=== PATIENT | male | born 1965 | race American Indian/Alaskan Native ===

== ENCOUNTER 2018-03-24 12:35 | Inpatient (IN) | payer OTHER ==
[2018-03-24] MEDS ORDERED: CATAPRES ONE (13:04)
[2018-03-24] MEDS ORDERED: CATAPRES PO ONE (13:07)
[2018-03-24] MEDS ORDERED: ANTIVERT PO ONE (13:18)
--- NOTE | 2018-03-24 13:22 | Emergency Department Report ---
HPI - General Chief Complaint: Dizziness Time Seen by Provider: 03/24/18 13:10 - HPI HPI: Room 1 The patient is a 52-year-old male presenting with chief complaint of dizziness. The patient states he works overnight got off work this morning 09:00. The patient states he was asleep when he was awakened with sensation of dizziness. Patient is to nausea and vomiting. Patient denies headache or fever. Patient denies any preceding trauma. The patient is hypertensive and states he's been off of this blood pressure medication for "a while." Location: Head Duration: [See above] Quality: Vertigo Severity: Moderate Modifying factors: [see above] Context: [see above] Mode of transportation: [not driving] ED Past Medical Hx - Past Medical History Previous Medical History?: Yes Hx Hypertension: Yes - Surgical History Past Surgical History?: No - Family History Family history: no significant - Social History Smoking Status: Current Every Day Smoker (1/3 pack per day) Substance Use Type: None, Alcohol (sixpack of beer daily) ED Review of Systems ROS: Stated complaint: DIZZINESS/HTN Other details as noted in HPI Constitutional: denies: fever Eyes: vision change ENT: denies: throat pain Respiratory: no symptoms reported Cardiovascular: denies: chest pain Endocrine: no symptoms reported Gastrointestinal: denies: abdominal pain Genitourinary: denies: dysuria Musculoskeletal: denies: back pain Neurological: vertigo. denies: headache Physical Exam - Physical Exam Vital Signs: Vital Signs 03/24/18 03/24/18 03/24/18 12:49 13:08 13:13 Temperature 97.1 F L Pulse Rate 79 79 Respiratory 16 16 Rate Blood Pressure 221/135 220/127 O2 Sat by Pulse 96 98 Oximetry Physical Exam: GENERAL: The patient is well-developed well-nourished male lying on stretcher not appearing to be in acute distress. Patient is holding an emesis bag HEENT: Normocephalic. Atraumatic. Extraocular motions are intact. Patient has moist mucous membranes. No nystagmus NECK: Supple. No meningitic signs are noted. Trachea midline CHEST/LUNGS: Clear to auscultation. There is no respiratory distress noted. HEART/CARDIOVASCULAR: Regular. There is no tachycardia. There is no gallop rub or murmur. ABDOMEN: Abdomen is soft, nontender. Patient has normal bowel sounds. There is no abdominal distention. SKIN: There is no rash. There is no edema. There is no diaphoresis. NEURO: The patient is awake, alert, and oriented. The patient is cooperative. The patient has no focal neurologic deficits. The patient has normal speech. Cranial nerves II through XII grossly intact, no drift. No dysmetria noted with ptibmi-so-dogr bilaterally MUSCULOSKELETAL: There is no evidence of acute injury. ED Course Vital Signs 03/24/18 03/24/18 03/24/18 12:49 13:08 13:13 Temperature 97.1 F L Pulse Rate 79 79 Respiratory 16 16 Rate Blood Pressure 221/135 220/127 O2 Sat by Pulse 96 98 Oximetry ED Medical Decision Making - Lab Data Result diagrams: 03/24/18 16:17 03/24/18 16:17 - EKG Data -: EKG Interpreted by Nh EKG shows normal: sinus rhythm Rate: normal - EKG Data When compared to previous EKG there are: previous EKG unavailable Interpretation: nonspecific ST-T wave stacia (T-wave inversions in leads 2, 3, aVF, V4, V5, V6), LVH - Radiology Data Radiology results: report reviewed (CT head), image reviewed (CT head) Findings [facility] [address] [place] [address] Cat Scan Report Signed Patient: GERMÁN FRANCIS MR#: [id number] : 1965 Acct:[id number] Age/Sex: 52 / M ADM Date: 03/24/18 Loc: ED Attending Dr: Ordering Physician: ALLA ALONSO MD Date of Service: 03/24/18 Procedure(s): CT head/brain wo con Accession Number(s): [id number] cc: ALLA ALONSO MD FINAL REPORT PROCEDURE: CT HEAD/BRAIN WO CON TECHNIQUE: Computerized tomography of the head was performed without contrast material. HISTORY: dizziness, hypertension COMPARISON: No prior studies are available for comparison. FINDINGS: No CT evidence of intracranial mass, hemorrhage, acute territorial infarction, or hydrocephalus. 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 The intracranial arteries are symmetric in density. Calvarium is intact. There is mild right maxillary sinus mucosal thickening. There may be periodontal disease, not fully evaluated. IMPRESSION: No CT evidence of acute intracranial abnormality Transcribed By: [facility] Dictated By: ALEXANDRIA BANKS M.D. Electronically Authenticated By: ALEXANDRIA BANKS M.D. Signed Date/Time: 03/24/181534 DD/ 33 TD/TT: 03/24/181533 - Differential Diagnosis hypertensive emergency, vertigo Critical care attestation.: If time is entered above; I have spent that time in minutes in the direct care of this critically ill patient, excluding procedure time. ED Disposition Clinical Impression: Hypertensive urgency, Dizziness Disposition: - OP ADMIT IP TO THIS HOSP Is pt being admited?: Yes Does the pt Need Aspirin: Yes Condition: Fair Referrals: ADRIENNE SIBLEY [Primary Care Provider] - 3-5 Days Time of Disposition: 18:06 (hospitalist notified (Dr Bacon))
[2018-03-24] MEDS ORDERED: APRESOLINE IV ONE ×2 (15:29→16:48)
--- NOTE | 2018-03-24 15:35 | Cat Scan Report ---
FINAL REPORT PROCEDURE: CT HEAD/BRAIN WO CON TECHNIQUE: Computerized tomography of the head was performed without contrast material. HISTORY: dizziness, hypertension COMPARISON: No prior studies are available for comparison. FINDINGS: No CT evidence of intracranial mass, hemorrhage, acute territorial infarction, or hydrocephalus. 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 The intracranial arteries are s ymmetric in density. Calvarium is intact. There is mild right maxillary sinus mucosal thickening. The re may be periodontal disease, not fully evaluated. IMPRESSION: No CT evidence of acute intracranial abnormality
[2018-03-24 16:41] LABS: Basophils % (Auto) 0.4 % (0.0-1.8); Eosinophils % (Auto) 0.8 % (0.0-4.3); Lymphocytes # (Auto) 0.8 K/mm3 (1.2-5.4); Lymphocytes % (Auto) 14.3 % (13.4-35.0); Mean Corpuscular HGB Conc 34 % (32-34); Mean Corpuscular Volume 98 fl (84-94); Monocytes # (Auto) 0.4 K/mm3 (0.0-0.8); Monocytes % (Auto) 7.3 % (0.0-7.3); Platelet Count 230 K/mm3 (140-440); Red Blood Count 4.51 M/mm3 (3.65-5.03); Red Cell Distribution Width 14.4 % (13.2-15.2)
[2018-03-24 17:19] LABS: BUN/Creatinine Ratio 17; Blood Urea Nitrogen 12 mg/dL (9-20); Hemolysis Index 2
[2018-03-24] MEDS ORDERED: CARDENE 50 MG in NACL 0.9% 250ML 230 ML IV SCH (18:00)
[2018-03-24] MEDS ORDERED: ASPIRIN PO ONE (18:07)
[2018-03-24] MEDS ORDERED: ZOFRAN IV ONE (19:50)
[2018-03-24] MEDS ORDERED: PERCOCET 5/325 PO PRN (21:25)
[2018-03-24] MEDS ORDERED: SODIUM CHLORIDE FLUSH SYRINGE 10 ML IV PRN (21:25)
[2018-03-24] MEDS ORDERED: DILAUDID IV PRN (21:25)
[2018-03-24] MEDS ORDERED: TYLENOL PO PRN (21:25)
[2018-03-24] MEDS ORDERED: ZOFRAN IV PRN (21:25)
--- NOTE | 2018-03-24 21:29 | History and Physical Report ---
History of Present Illness Date of examination: 03/24/18 Medications and Allergies Allergies Allergy/AdvReac Type Severity Reaction Status Date / Time No Known Allergies Allergy Unverified 03/24/18 12:59 Home Medications Medication Instructions Recorded Confirmed Last Taken Type No Known Home Medications [No 03/24/18 03/24/18 Unknown History Reported Home Medications] Active Meds: Active Medications Nicardipine HCl 50 mg/ Sodium (Chloride) 250 mls @ 25 mls/hr IV TITR NAOMI; Protocol Last Titration: 03/24/18 21:12 Dose: 5 mg/hr, 25 mls/hr Documented by: Exam - Constitutional Vitals: Temp Pulse Resp BP Pulse Ox 97.1 F L 79 17 134/73 93 03/24/18 12:49 03/24/18 21:00 03/24/18 21:00 03/24/18 21:00 03/24/18 21:00 Results - Labs CBC & Chem 7: 03/24/18 16:17 03/24/18 16:17 Labs: Laboratory Last Values WBC 5.6 K/mm3 (4.5-11.0) 03/24/18 16:17 RBC 4.51 M/mm3 (3.65-5.03) 03/24/18 16:17 Hgb 15.0 gm/dl (11.8-15.2) 03/24/18 16:17 Hct 44.0 % (35.5-45.6) 03/24/18 16:17 MCV 98 fl (84-94) H 03/24/18 16:17 MCH 33 pg (28-32) H 03/24/18 16:17 MCHC 34 % (32-34) 03/24/18 16:17 RDW 14.4 % (13.2-15.2) 03/24/18 16:17 Plt Count 230 K/mm3 (140-440) 03/24/18 16:17 Lymph % (Auto) 14.3 % (13.4-35.0) 03/24/18 16:17 [place] % (Auto) 7.3 % (0.0-7.3) 03/24/18 16:17 Eos % (Auto) 0.8 % (0.0-4.3) 03/24/18 16:17 Baso % (Auto) 0.4 % (0.0-1.8) 03/24/18 16:17 Lymph # 0.8 K/mm3 (1.2-5.4) L 03/24/18 16:17 [place] # 0.4 K/mm3 (0.0-0.8) 03/24/18 16:17 Eos # 0.0 K/mm3 (0.0-0.4) 03/24/18 16:17 Baso # 0.0 K/mm3 (0.0-0.1) 03/24/18 16:17 Seg Neutrophils % 77.2 % (40.0-70.0) H 03/24/18 16:17 Seg Neutrophils # 4.3 K/mm3 (1.8-7.7) 03/24/18 16:17 Sodium 139 mmol/L (137-145) 03/24/18 16:17 Potassium 4.0 mmol/L (3.6-5.0) 03/24/18 16:17 Chloride 100.9 mmol/L (98-107) 03/24/18 16:17 Carbon Dioxide 26 mmol/L (22-30) 03/24/18 16:17 Anion Gap 16 mmol/L 03/24/18 16:17 BUN 12 mg/dL (9-20) 03/24/18 16:17 Creatinine 0.7 mg/dL (0.8-1.5) L 03/24/18 16:17 Estimated GFR > 60 ml/min 03/24/18 16:17 BUN/Creatinine Ratio 17 % 03/24/18 16:17 Glucose 105 mg/dL (75-100) H 03/24/18 16:17 Calcium 9.0 mg/dL (8.4-10.2) 03/24/18 16:17
[2018-03-24] MEDS ORDERED: PEPCID ONE (22:44)
[2018-03-24] MEDS ORDERED: COREG ONE (22:44)
[2018-03-24] MEDS ORDERED: COZAAR ONE (22:44)
[2018-03-24] MEDS: COZAAR PO SCH (22:45)
[2018-03-24] MEDS: COREG PO SCH (22:45)
[2018-03-24] MEDS: PEPCID PO SCH (22:46)
[2018-03-24] MEDS: SODIUM CHLORIDE FLUSH SYRINGE 10 ML IV SCH (22:46)
--- NOTE | 2018-03-25 03:03 | History and Physical Report ---
CHIEF COMPLAINT: Dizziness. HISTORY OF PRESENT ILLNESS: A 52-year-old male noncompliant with hypertensive medicine, comes in for dizziness since morning at 9:00. He denies headache or any transient weakness. Not taking his medications. PAST MEDICAL HISTORY: Significant for hypertension. PAST SURGICAL HISTORY: None. FAMILY HISTORY: Hypertension. SOCIAL HISTORY: Smokes over half a pack a day. REVIEW OF SYSTEMS: Significant for dizziness. Also, feeling heavy in the body. Otherwise, negative. A 14-point review of systems is done. PHYSICAL EXAMINATION: GENERAL: Middle-aged man, cooperative during examination. VITAL SIGNS: Initial blood pressure was 189/99, respirations are 16, pulse is 78. HEENT: Unremarkable. Pupils equal and reactive. NECK: Supple, no lymphadenopathy, no thyromegaly. LUNGS: Clear to auscultation and percussion. Good air entry. CARDIOVASCULAR: S1, S2 heard. No gallop, no murmur, no rub. Apical impulse in left fifth intercostal space and midclavicular line. ABDOMEN: Soft and benign. No hepatosplenomegaly. No guarding, no rigidity. Hernial orifices are normal. EXTREMITIES: Good pedal pulses. No pedal edema. LABORATORY DATA: CBC and CMP within normal limits except for glucose being slightly high 105. Also, MCV and MCH is slightly high. Head CT is negative. ASSESSMENT AND PLAN: 1. Hypertensive emergency. The patient started on Cardene drip. The patient also added on losartan and Cozaar and IV hydralazine p.r.n. The patient counseled about compliance with medications and followup with primary care. 2. Deep venous thrombosis prophylaxis, Lovenox 40 mg subcutaneous daily. JOB# [id number] VSM/NTS
[2018-03-25 05:30] LABS: Alanine Aminotransferase 18 units/L (7-56); Albumin 4.1 g/dL (3.9-5); BUN/Creatinine Ratio 18; Blood Urea Nitrogen 14 mg/dL (9-20); Calcium 9.2 mg/dL (8.4-10.2); Hemolysis Index 2
[2018-03-25] MEDS: COZAAR PO SCH (09:25)
[2018-03-25] MEDS: PEPCID PO SCH ×2 (09:25→21:48)
[2018-03-25] MEDS: COREG PO SCH (09:26)
[2018-03-25] MEDS: LOVENOX SUB-Q SCH (09:26)
[2018-03-25] MEDS: SODIUM CHLORIDE FLUSH SYRINGE 10 ML IV SCH ×2 (09:27→21:49)
--- NOTE | 2018-03-25 14:52 | Progress Note ---
Assessment and Plan Assessment and plan: Hypertensive urgency - Patient was admitted to ICU and was treated with nicardipine drip - Nicardipine was discontinued after midnight - Patient started with by mouth medications - Continue monitor - Patient had hypertension and was given medications previously was complement his medication because it causes erectile dysfunction Medication non-complaince - He said medication affect his sexlife - I discontinued carvidilol - Causes extensively Alcohol dependence - patient was counselled about cessation of alcohol DVT - on lovenox Disposition - Possible DC tomorrow if BP is controlled. History Interval history: Patient was seen and evaluated this morning is at bedside, no new complaints. Hospitalist Physical - Physical exam Narrative exam: Not in cardiopulmonary distress. The patient appeared well nourished and normally developed. Vital signs as documented. Head exam is unremarkable. No scleral icterus . Neck is without jugular venous distension, thyromegaly, or carotid bruits. Lungs are clear to auscultation. Cardiac exam reveals regular rate and Rhythm. First and second heart sounds normal. No murmurs, rubs or gallops. Abdominal exam reveals normal bowel sounds, no masses, no organomegaly and no aortic enlargement. Extremities are nonedematous and both femoral and pedal pulses are normal. ORDER DESK CLERK: Alert and oriented 3. No focal weakness. - Constitutional Vitals: Temp Pulse Resp BP Pulse Ox 98.4 F 68 20 167/99 97 03/25/18 10:59 03/25/18 10:58 03/25/18 10:59 03/25/18 10:58 03/25/18 10:58 Results - Labs CBC & Chem 7: 03/24/18 16:17 03/25/18 04:02 Labs: Laboratory Last Values WBC 5.6 K/mm3 (4.5-11.0) 03/24/18 16:17 RBC 4.51 M/mm3 (3.65-5.03) 03/24/18 16:17 Hgb 15.0 gm/dl (11.8-15.2) 03/24/18 16:17 Hct 44.0 % (35.5-45.6) 03/24/18 16:17 MCV 98 fl (84-94) H 03/24/18 16:17 MCH 33 pg (28-32) H 03/24/18 16:17 MCHC 34 % (32-34) 03/24/18 16:17 RDW 14.4 % (13.2-15.2) 03/24/18 16:17 Plt Count 230 K/mm3 (140-440) 03/24/18 16:17 Lymph % (Auto) 14.3 % (13.4-35.0) 03/24/18 16:17 [place] % (Auto) 7.3 % (0.0-7.3) 03/24/18 16:17 Eos % (Auto) 0.8 % (0.0-4.3) 03/24/18 16:17 Baso % (Auto) 0.4 % (0.0-1.8) 03/24/18 16:17 Lymph # 0.8 K/mm3 (1.2-5.4) L 03/24/18 16:17 [place] # 0.4 K/mm3 (0.0-0.8) 03/24/18 16:17 Eos # 0.0 K/mm3 (0.0-0.4) 03/24/18 16:17 Baso # 0.0 K/mm3 (0.0-0.1) 03/24/18 16:17 Seg Neutrophils % 77.2 % (40.0-70.0) H 03/24/18 16:17 Seg Neutrophils # 4.3 K/mm3 (1.8-7.7) 03/24/18 16:17 Sodium 139 mmol/L (137-145) 03/25/18 04:02 Potassium 3.8 mmol/L (3.6-5.0) 03/25/18 04:02 Chloride 101.6 mmol/L (98-107) 03/25/18 04:02 Carbon Dioxide 26 mmol/L (22-30) 03/25/18 04:02 Anion Gap 15 mmol/L 03/25/18 04:02 BUN 14 mg/dL (9-20) 03/25/18 04:02 Creatinine 0.8 mg/dL (0.8-1.5) 03/25/18 04:02 Estimated GFR > 60 ml/min 03/25/18 04:02 BUN/Creatinine Ratio 18 % 03/25/18 04:02 Glucose 105 mg/dL (75-100) H 03/25/18 04:02 Hemoglobin A1c 5.3 % (4-6) 03/24/18 21:37 Calcium 9.2 mg/dL (8.4-10.2) 03/25/18 04:02 Total Bilirubin 0.70 mg/dL (0.1-1.2) 03/25/18 04:02 AST 25 units/L (5-40) 03/25/18 04:02 ALT 18 units/L (7-56) 03/25/18 04:02 Alkaline Phosphatase 68 units/L (35-129) 03/25/18 04:02 Total Protein 8.0 g/dL (6.3-8.2) 03/25/18 04:02 Albumin 4.1 g/dL (3.9-5) 03/25/18 04:02 Albumin/Globulin Ratio 1.1 % 03/25/18 04:02
[2018-03-25] MEDS: NORVASC PO SCH (14:53)
[2018-03-25] MEDS: HCTZ PO SCH (14:53)
--- NOTE | 2018-03-25 15:00 | Event Note ---
Date: 03/24/18 See dictated H/p in reports Hypertensive emergency
[2018-03-25] MEDS: APRESOLINE PO SCH ×2 (18:33→21:48)
[2018-03-26] MEDS: APRESOLINE IV PRN (06:15)
[2018-03-26 06:22] LABS: BUN/Creatinine Ratio 19; Blood Urea Nitrogen 21 mg/dL (9-20); Calcium 9.1 mg/dL (8.4-10.2); Hemolysis Index 5
[2018-03-26] MEDS: COZAAR PO SCH (09:01)
[2018-03-26] MEDS: APRESOLINE PO SCH ×3 (09:02→20:06)
[2018-03-26] MEDS: PEPCID PO SCH ×2 (09:02→21:19)
[2018-03-26] MEDS: NORVASC PO SCH (09:02)
[2018-03-26] MEDS: HCTZ PO SCH (09:02)
[2018-03-26] MEDS: LOVENOX SUB-Q SCH (09:02)
[2018-03-26] MEDS: SODIUM CHLORIDE FLUSH SYRINGE 10 ML IV SCH ×2 (09:09→21:19)
--- NOTE | 2018-03-26 11:16 | Event Note ---
Date: 03/26/18 Came to see patient, admitted to ICU for HBP , CCM management. Patient was transferred out to floor already,so will see as needed
--- NOTE | 2018-03-26 17:21 | Progress Note ---
Assessment and Plan Assessment and plan: Hypertensive urgency - Patient was admitted to ICU and was treated with nicardipine drip - Nicardipine was discontinued after midnight - Patient started with by mouth medications - Start on BB, CONTINUE HCTZ, LOSARTAN, NORVASC. Patient not sure of prior home medication states its been 4 years. - Continue monitor - Patient had hypertension and was given medications previously was complement his medication because it causes erectile dysfunction Medication non-compliance - He said medication affect his sexlife - Causes extensively Alcohol dependence - patient was counselled about cessation of alcohol DVT - on lovenox Disposition - Possible DC tomorrow if BP is controlled. History Interval history: Patient seen and examined, no new complaints, still some dizziness from elevated BP Hospitalist Physical - Physical exam Narrative exam: VITAL SIGNS: Reviewed. GENERAL: The patient appeared well nourished and normally developed. Vital signs as documented. HEAD: No signs of head trauma. EYES: Pupils are equal. Extraocular motions intact. EARS: Hearing grossly intact. MOUTH: Oropharynx is normal. NECK: No adenopathy, no JVD. CHEST: Chest with clear breath sounds bilaterally. No wheezes, rales, or rhonchi. CARDIAC: Regular rate and rhythm. S1 and S2, without murmurs, gallops, or rubs. VASCULAR: No Edema. Peripheral pulses normal and equal in all extremities. ABDOMEN: Soft, without detectable tenderness. No sign of distention. No rebound or guarding, and no masses palpated. Bowel Sounds normal. MUSCULOSKELETAL: Good range of motion of all major joints. Extremities without clubbing, cyanosis or edema. NEUROLOGIC EXAM: Alert and oriented x 3. No focal sensory or strength defici ts. Speech normal. Follows commands. PSYCHIATRIC: Mood normal. SKIN: No rash or lesions. - Constitutional Vitals: Temp Pulse Resp BP Pulse Ox 98.0 F 85 20 170/101 97 03/26/18 16:27 03/26/18 16:27 03/26/18 16:27 03/26/18 16:27 03/26/18 16:27 Results - Labs CBC & Chem 7: 03/24/18 16:17 03/26/18 05:44 Labs: Laboratory Last Values WBC 5.6 K/mm3 (4.5-11.0) 03/24/18 16:17 RBC 4.51 M/mm3 (3.65-5.03) 03/24/18 16:17 Hgb 15.0 gm/dl (11.8-15.2) 03/24/18 16:17 Hct 44.0 % (35.5-45.6) 03/24/18 16:17 MCV 98 fl (84-94) H 03/24/18 16:17 MCH 33 pg (28-32) H 03/24/18 16:17 MCHC 34 % (32-34) 03/24/18 16:17 RDW 14.4 % (13.2-15.2) 03/24/18 16:17 Plt Count 230 K/mm3 (140-440) 03/24/18 16:17 Lymph % (Auto) 14.3 % (13.4-35.0) 03/24/18 16:17 [place] % (Auto) 7.3 % (0.0-7.3) 03/24/18 16:17 Eos % (Auto) 0.8 % (0.0-4.3) 03/24/18 16:17 Baso % (Auto) 0.4 % (0.0-1.8) 03/24/18 16:17 Lymph # 0.8 K/mm3 (1.2-5.4) L 03/24/18 16:17 [place] # 0.4 K/mm3 (0.0-0.8) 03/24/18 16:17 Eos # 0.0 K/mm3 (0.0-0.4) 03/24/18 16:17 Baso # 0.0 K/mm3 (0.0-0.1) 03/24/18 16:17 Seg Neutrophils % 77.2 % (40.0-70.0) H 03/24/18 16:17 Seg Neutrophils # 4.3 K/mm3 (1.8-7.7) 03/24/18 16:17 Sodium 138 mmol/L (137-145) 03/26/18 05:44 Potassium 3.8 mmol/L (3.6-5.0) 03/26/18 05:44 Chloride 100.5 mmol/L (98-107) 03/26/18 05:44 Carbon Dioxide 29 mmol/L (22-30) 03/26/18 05:44 Anion Gap 12 mmol/L 03/26/18 05:44 BUN 21 mg/dL (9-20) H 03/26/18 05:44 Creatinine 1.1 mg/dL (0.8-1.5) 03/26/18 05:44 Estimated GFR > 60 ml/min 03/26/18 05:44 BUN/Creatinine Ratio 19 % 03/26/18 05:44 Glucose 97 mg/dL (75-100) 03/26/18 05:44 Hemoglobin A1c 5.3 % (4-6) 03/24/18 21:37 Calcium 9.1 mg/dL (8.4-10.2) 03/26/18 05:44 Total Bilirubin 0.70 mg/dL (0.1-1.2) 03/25/18 04:02 AST 25 units/L (5-40) 03/25/18 04:02 ALT 18 units/L (7-56) 03/25/18 04:02 Alkaline Phosphatase 68 units/L (35-129) 03/25/18 04:02 Total Protein 8.0 g/dL (6.3-8.2) 03/25/18 04:02 Albumin 4.1 g/dL (3.9-5) 03/25/18 04:02 Albumin/Globulin Ratio 1.1 % 03/25/18 04:02
[2018-03-26] MEDS: NORMODYNE PO SCH (21:19)
[2018-03-27] MEDS: APRESOLINE IV PRN (05:50)
[2018-03-27] MEDS: APRESOLINE PO SCH ×2 (08:59→13:13)
[2018-03-27] MEDS: HCTZ PO SCH (09:00)
[2018-03-27] MEDS: COZAAR PO SCH (09:00)
[2018-03-27] MEDS: NORVASC PO SCH (09:00)
[2018-03-27] MEDS: PEPCID PO SCH (09:00)
[2018-03-27] MEDS: SODIUM CHLORIDE FLUSH SYRINGE 10 ML IV SCH (09:01)
[2018-03-27] MEDS: LOVENOX SUB-Q SCH (09:01)
[2018-03-27] MEDS: NORMODYNE PO SCH (09:12)
--- NOTE | 2018-03-27 11:50 | Discharge Summary ---
Providers - Providers Date of Admission: 03/24/18 21:25 Attending physician: ANNA ORTIZ MD 03/25/18 09:55 Consult to Physician [CONS] Routine Comment: Consulting Provider: SHANE SARKAR Physician Instructions: Reason For Exam: critical care Primary care physician: ADRIENNE SIBLEY Hospitalization Reason for admission: HYPERTENSIVE URGENCY Condition: Stable Hospital course: The patient is a 52-year-old male presenting with chief complaint of dizziness. The patient states he works overnight got off work this morning 09:00. The patient states he was asleep when he was awakened with sensation of dizziness. Patient is to nausea and vomiting. Patient denies headache or fever. Patient denies any preceding trauma. The patient is hypertensive and states he's been off of this blood pressure medication for "a while." Patient was restarted on medications with improved. We discussed in detail the finding in his EKG and also the need for gradual BP correction and importance of keeping a diary. I also discussed the need to follow with Cardiology due to finding in the EKG. Patient and family verbalized understanding. He denied any chest pain, Nausea, vomiting. His dizziness is completely resolved. Patient verablized understanding on need to be compliant with medication and quit etoh Hypertensive urgency Medication non-compliance Alcohol dependence Disposition: DC-01 TO HOME OR SELFCARE Time spent for discharge: 35 mins Core Measure Documentation - Palliative Care Palliative Care/ Comfort Measures: Not Applicable - Core Measures Any of the following diagnoses?: none Exam - Physical Exam Narrative exam: VITAL SIGNS: Reviewed. GENERAL: The patient appeared well nourished and normally developed. Vital signs as documented. HEAD: No signs of head trauma. EYES: Pupils are equal. Extraocular motions intact. EARS: Hearing grossly intact. MOUTH: Oropharynx is normal. NECK: No adenopathy, no JVD. CHEST: Chest with clear breath sounds bilaterally. No wheezes, rales, or rhonchi. CARDIAC: Regular rate and rhythm. S1 and S2, without murmurs, gallops, or rubs. VASCULAR: No Edema. Peripheral pulses normal and equal in all extremities. ABDOMEN: Soft, without detectable tenderness. No sign of distention. No rebound or guarding, and no masses palpated. Bowel Sounds normal. MUSCULOSKELETAL: Good range of motion of all major joints. Extremities without clubbing, cyanosis or edema. NEUROLOGIC EXAM: Alert and oriented x 3. No focal sensory or strength deficits. Speech normal. Follows commands. PSYCHIATRIC: Mood normal. SKIN: No rash or lesions. - Constitutional Vitals: Temp Pulse Resp BP Pulse Ox 98.3 F 87 16 150/103 97 03/27/18 08:34 03/27/18 08:34 03/27/18 08:34 03/27/18 08:34 03/27/18 08:34 Plan Activity: advance as tolerated, fall precautions Diet: low fat Special Instructions: record daily BP diary Follow up with: ADRIENNE SIBLEY [Primary Care Provider] - 3-5 Days SUE RANGEL MD [Staff Physician] - 7 Days Prescriptions: amLODIPine [Norvasc] 10 mg PO QDAY #30 tablet hydrALAZINE [Apresoline TAB] 100 mg PO TID #90 tab hydroCHLOROthiazide [HCTZ] 25 mg PO QDAY #30 tablet Labetalol [Normodyne TAB] 100 mg PO BID #60 tablet Losartan [Cozaar] 100 mg PO QDAY #30 tablet
[2018-03-27 12:16] VITALS: BP 124/76
== END 2018-03-27 15:14 | disposition home or self-care (01) | DRG 305 ==
LOC: ED 12:35 → 4A 21:25 → CC1 23:07 → 4A 03-25 11:03
PROVIDERS: ADMIT Internal Medicine; ATTEND Internal Medicine
DX: I16.1 Hypertensive emergency (principal); F10.20 Alcohol dependence, uncomplicated; I10 Essential (primary) hypertension; F17.200 Nicotine dependence, unspecified, uncomplicated; Z91.14 Patient's other noncompliance with medication regimen; Z71.41 Alcohol abuse counseling and surveillance of alcoholic; Z82.49 Family history of ischemic heart disease and other diseases of the circulatory system
CPT/HCPCS: 36415; 70450; 80048; 80053; 83036; 85025; 93005; 93010; 96374; 96375; G0378; J0360; J1650; J2405; J7050